=== PATIENT | male | born 1985 | race Caucasian/White ===

== ENCOUNTER → 2020-08-17 | Outpatient (CLI) | payer OTHER | END | disposition home or self-care (01) | LOC: PLD 08:06 | DX: R23.4 Changes in skin texture (principal) ==

== ENCOUNTER → 2021-04-03 | Outpatient (CLI) | payer OTHER ==
[~2021-04-03] MED LIST: CEPH500 PO; IBUP600 PO; OXYACE5T PO; RXOXYACE PO; SULTRIDS PO
== END | disposition home or self-care (01) ==
LOC: LAB SHORT 09:34 → LAB EV 09:34
DX: L02.831 Carbuncle of head [any part, except face] (principal)
CPT/HCPCS: 87070; 87205

== ENCOUNTER → 2021-04-12 | Outpatient (CLI) | payer OTHER | END | disposition home or self-care (01) | LOC: LAB SHORT 22:21 → LAB EV 22:21 | DX: L02.831 Carbuncle of head [any part, except face] (principal) | CPT/HCPCS: 87102; 87106 ==

== ENCOUNTER → 2021-04-13 | Outpatient (CLI) | payer OTHER | END | disposition home or self-care (01) | LOC: LAB SHORT 15:56 → LAB EV 15:56 | DX: L02.831 Carbuncle of head [any part, except face] (principal) | CPT/HCPCS: 87070; 87106; 87205 ==

== ENCOUNTER 2021-05-22 13:24 | Day surgery (SDC) | payer OTHER ==
[~2021-05-22] VITALS: Ht 177.8 cm; Wt 97.6 kg
--- NOTE | 2021-05-22 14:09 | NUR ---
05/22/21 1409 Shara Barron CHARTED BY MAGI CHONG RN
== END 2021-05-22 16:40 | disposition home or self-care (01) ==
LOC: ORSCSDS 13:24
PROVIDERS: Orthopaedic Surgery
PROC: 0PSS34Z Reposition Left Thumb Phalanx with Internal Fixation Device, Percutaneous Approach (ICD-10-PCS; principal; 2021-05-22 14:30)
DX: S62.512A Displaced fracture of proximal phalanx of left thumb, initial encounter for closed fracture (principal)
CPT/HCPCS: J1100; J2250; J2405; J2704; J2795; J3010; J7120

== ENCOUNTER 2023-04-23 08:18 | Day surgery (SDC) | payer OTHER ==
[~2023-04-23] VITALS: Ht 180.3 cm; Wt 97.3 kg
[2023-04-23] MEDS ORDERED: Propranolol1 MG/1 M1 (08:52)
[2023-04-23 10:50] VITALS: BP 114/70
== END 2023-04-23 11:08 | disposition home or self-care (01) ==
LOC: ORSCSDS 08:18
PROVIDERS: Internal Medicine Gastroenterology
PROC: 0DBK8ZX Excision of Ascending Colon, Via Natural or Artificial Opening Endoscopic, Diagnostic (ICD-10-PCS; principal; 2023-04-23 09:30)
PROC: 0DBN8ZX Excision of Sigmoid Colon, Via Natural or Artificial Opening Endoscopic, Diagnostic (ICD-10-PCS; principal; 2023-04-23 09:30)
PROC: 0DBP8ZX Excision of Rectum, Via Natural or Artificial Opening Endoscopic, Diagnostic (ICD-10-PCS; principal; 2023-04-23 09:30)
DX: K62.5 Hemorrhage of anus and rectum (principal); D12.2 Benign neoplasm of ascending colon; D12.8 Benign neoplasm of rectum; D12.5 Benign neoplasm of sigmoid colon; K57.30 Diverticulosis of large intestine without perforation or abscess without bleeding; K64.1 Second degree hemorrhoids
CPT/HCPCS: 88305; J2250; J2704; J7120